=== PATIENT | female | born 1990 | race Hispanic/Latino ===

== ENCOUNTER 2016-03-21 05:31 | Inpatient (IN) | payer BC, MEDICAID ==
--- NOTE | 2016-03-20 20:19 | History and Physical Report ---
History of Present Illness Date of examination: 03/21/16 Date of admission: 03/21/2016 Chief complaint: I'm here for my History of present illness: Patient is a 25 year old who presents for elective repeat with bilateral tubal ligation. She has had an uncomplicated course and has been receiving care since 1st trimester Past History Past Medical History: no pertinent history Past Surgical History: cholecystectomy, section Social history: - Obstetrical History Expected Date of Delivery: 03/26/16 Actual Gestation: 39 Week(s) 4 Day(s) Medications and Allergies Allergies Allergy/AdvReac Type Severity Reaction Status Date / Time Penicillins Allergy Unknown Verified 03/21/16 05:33 Home Medications Medication Instructions Recorded Confirmed Last Taken Type No Known Home Medications [No 03/21/16 03/21/16 Unknown History Reported Home Medications] Review of Systems All systems: negative Gastrointestinal: abdominal pain - Physical Exam Breasts: Positive: deferred Cardiovascular: Regular rate, Normal S1, Normal S2 Lungs: Positive: Clear to auscultation, Normal air movement Abdomen: Positive: normal appearance, soft, normal bowel sounds. Negative: distention, tenderness Vulva: both: normal Vagina: Positive: normal moisture. Negative: discharge Cervix: Negative: lesion, discharge Uterus: Positive: normal size, normal contour Adnexa: both: normal Anus/Rectum: Positive: normal perianal skin, heme negative. Negative: rectal mass, hemorrhoids Extremities: Deep Tendon Reflex Grade: Normal +2 - Obstetrical FHR: auscultation normal, category 1 Cervical Dilatation: 0 Results Result Diagrams: 03/21/16 20:10 All other labs normal. Assessment and Plan IUP at 39 weeks here for elective repeat . Admit for surgery. consents signed and on the chart.
[~2016-03-21 05:31] MED LIST: ANCEF/STERILE WATER 2 GM/20 ML 20 ML IV NR; BICITRA PO ONE; PEPCID IV ONE; PITOCin/NS 20 UNIT/1000ML DRIP 1,000 ML IV NR; REGLAN IV ONE
[2016-03-21] MEDS ORDERED: LACTATED RINGERS 2,000 ML ONE (05:38)
[2016-03-21] MEDS: LACTATED RINGERS 1,000 ML IV NR ×2 (05:58→07:16)
[2016-03-21 06:18] LABS: Basophils % (Auto) 0.6 % (0.0-1.8); Eosinophils % (Auto) 1.6 % (0.0-4.3); Hematocrit 27.8 % (30.3-42.9); Hemoglobin 9.8 gm/dl (10.1-14.3); Mean Corpuscular HGB Conc 35 % (30-34); Mean Corpuscular Hemoglobin 29 pg (28-32); Mean Corpuscular Volume 83 fl (79-97); Red Blood Count 3.34 M/mm3 (3.65-5.03); Red Cell Distribution Width 14.9 % (13.2-15.2); White Blood Count 10.5 K/mm3 (4.5-11.0)
[2016-03-21 06:26] LABS: Platelet Count 250 K/mm3 (140-440)
[2016-03-21] MEDS ORDERED: GARAMYCIN 120 MG in NACL 0.9% 100 ML IV SCH (06:45)
[2016-03-21] MEDS ORDERED: GARAMYCIN IV ONE (07:00)
[2016-03-21] MEDS ORDERED: CLEOCIN 600 MG/50 mL 50 ML IV NR (07:00)
[2016-03-21] MEDS ORDERED: NS IV ONE (07:00)
[2016-03-21] MEDS ORDERED: BICITRA ONE (07:00)
[2016-03-21] MEDS ORDERED: REGLAN ONE (07:01)
[2016-03-21] MEDS ORDERED: PEPCID IV ONE (07:01)
[2016-03-21] MEDS ORDERED: GARAMYCIN 120 MG in NACL 0.9% 100 ML IV ONE (07:10)
--- NOTE | 2016-03-21 07:20 | Anesthesia Consultation ---
Anesthesia Consult and Med Hx Date of service: 03/21/16 - Airway Anesthetic Teeth Evaluation: Good (careos between #8 and #9) ROM Head & Neck: Adequate Mental/Hyoid Distance: Adequate Mallampati Class: Class II Intubation Access Assessment: Probably Good - Pre-Operative Health Status ASA Pre-Surgery Classification: ASA2 Proposed Anesthetic Plan: Spinal - Pulmonary Hx Asthma: No COPD: No Hx Pneumonia: No - Cardiovascular System Hx Hypertension: No - Central Nervous System Hx Seizures: No Hx Psychiatric Problems: No - Endocrine Hx Renal Disease: No Hx End Stage Renal Disease: No Hx Hypothyroidism: No Hx Hyperthyroidism: No - Hematic Hx Anemia: No Hx Sickle Cell Disease: No
--- NOTE | 2016-03-21 07:21 | Anesthesia Day of Surgery ---
Anesthesia Day of Surgery - Day of Surgery Patient Examined: Yes Patient H&P Reviewed: Yes Patient is NPO: Yes
[2016-03-21] MEDS ORDERED: MORPHINE ONE (07:39)
[2016-03-21] MEDS ORDERED: ePHEDrine SULFATE ONE (07:58)
[2016-03-21] MEDS ORDERED: ZOFRAN IV PRN ×2 (08:00→13:22)
[2016-03-21] MEDS ORDERED: NARCAN 0.4 MG/1 ML IV PRN ×2 (08:00→10:29)
[2016-03-21] MEDS ORDERED: SODIUM CHLORIDE FLUSH SYRINGE 10 ML IV NR ×2 (08:00→10:29)
[2016-03-21] MEDS ORDERED: BENADRYL IV PRN (08:00)
[2016-03-21] MEDS ORDERED: TORADOL IV PRN (08:00)
[2016-03-21] MEDS ORDERED: DILAUDID IV PRN (08:00)
[2016-03-21] MEDS ORDERED: NACL 0.9% IR ONE (08:34)
[2016-03-21] MEDS ORDERED: WATER FOR IRRIG STERILE IR ONE (08:34)
[2016-03-21] MEDS ORDERED: MORPHINE IV PRN (10:29)
[2016-03-21] MEDS ORDERED: TUCKS PAD TP PRN (10:29)
[2016-03-21] MEDS ORDERED: MYLICON PO PRN (10:29)
[2016-03-21] MEDS ORDERED: PITOCin/NS 20 UNIT/1000ML DRIP 1,000 ML IV SCH (10:29)
[2016-03-21] MEDS ORDERED: LANSINOH TP PRN (10:29)
[2016-03-21] MEDS ORDERED: D5LR 1,000 ML IV ONE (13:06)
[2016-03-21] MEDS ORDERED: D5LR 1,000 ML IV SCH (14:00)
--- NOTE | 2016-03-21 14:19 | Operative Report ---
PREOPERATIVE DIAGNOSES: 1. Intrauterine at 39 and 1/7 weeks. 2. Previous section. 3. Undesired fertility. POSTOPERATIVE DIAGNOSES: 1. Intrauterine at 39 and 1/7 weeks. 2. Previous section. 3. Undesired fertility. PROCEDURE: Repeat low transverse section. SURGEON: Steffi Mata MD MANAGER BUSINESS MANAGEMENT: Naomi Wren. ESTIMATED BLOOD LOSS: 700 mL. IV FLUIDS: 1000 mL. URINE OUTPUT: 200 mL clear at the end of the procedure. COMPLICATIONS: None. SPECIMENS: Right and left fallopian tubes. FINDINGS: Viable female delivered at 08:14 a.m. Weight 6 pounds 13 ounces, 3094 grams. Apgars 8 and 9. DESCRIPTION OF PROCEDURE: The patient was taken to the OR with IV running in place. She was appropriately identified as herself. She was given adequate anesthesia without difficulty. She was then placed in the dorsal supine position with a leftward tilt and prepped and draped in a normal sterile fashion. Attention was turned to the patient's abdomen where an Allis test confirmed adequate anesthesia. Following this, a Pfannenstiel incision was made in the area of her previous incision and carried to the underlying fascia with a scalpel. The fascia was incised in the midline and extended bilaterally using the curved Elizabeth scissors. The fascia was then dissected from underlying rectus muscles in a series of sharp and blunt dissection. The muscle was entered into bluntly and the rectus muscles were sharply superiorly and inferiorly using the Elizabeth scissors. The peritoneal cavity was entered into sharply using Metzenbaum scissors and the peritoneal incision was also extended superiorly and inferiorly. The bladder blade was then placed into the incision to protect the bladder. The bladder flap was created and the bladder blade was replaced. Following this, the hysterotomy incision was made using the scalpel. Once at the level of the amniotic membrane, the incision was entered and was extended bilaterally using the surgeon's finger. The sac was ruptured. The vertex of the was delivered atraumatically in the ROT position. Mouth and nose were suctioned on the field and the rest of the baby was delivered without difficulty. The cord was clamped and cut, and the was handed to the awaiting NICU personnel. Cord blood was obtained, following which the placenta was delivered manually and handed off for pathology. The uterus was then exteriorized and cleared of all clots and debris. It was then closed in a running locked fashion with 1 chromic for excellent hemostasis. Attention was then turned to the patient's fallopian tubes. They were grasped with the Juliet clamp and they were both ligated in the [place] style tubal ligation. Following this, the abdomen and pelvis was copiously irrigated with warm normal saline. The uterus was replaced into the abdominal cavity. Again, there was excellent hemostasis. The muscles were then reapproximated in the midline using individual sutures of 0 Vicryl. The fascia was then closed in a running fashion using 0 Vicryl. Subcutaneous tissue was then copiously irrigated and the skin was closed in the subcuticular fashion using 4-0 Monocryl. The sponge, lap, needle, and instrument counts were correct x 2. The patient tolerated the procedure well and was taken to recovery in stable condition. JOB# [id number] DAVID/JORGE LUIS CHRISTIAN
[2016-03-21 20:19] LABS: Hematocrit 25.3 % (30.3-42.9)
[2016-03-21] MEDS ORDERED: NACL 0.9% 1000 ML 1,000 ML IV ONE (21:00)
[2016-03-22] MEDS: MOTRIN PO PRN (11:39)
[2016-03-22] MEDS: PERCOCET 5/325 PO PRN ×2 (11:39→20:06)
--- NOTE | 2016-03-22 14:09 | Progress Note ---
Subjective Date of service: 03/22/16 Interval history: 1st POD after Patient is in the bed, comfortable. Ambulated normally. Pain is well controlled with pain meds. No residual neurological deficit. No anesthesia complications Objective - Constitutional Vitals: Vital Signs - 12hr 03/22/16 03/22/16 04:10 09:30 Temperature 98.1 F 98.3 F Pulse Rate [ 98 H 98 H Left Radial] Respiratory 18 20 Rate Blood Pressure 103/60 100/48 [Left Arm] - Labs CBC & Chem 7: 03/21/16 20:10 Labs: Abnormal lab results 03/21/16 Range/Units 20:10 Hgb 8.0 L (10.1-14.3) gm/dl Hct 25.3 L (30.3-42.9) %
[2016-03-23] MEDS: PERCOCET 5/325 PO PRN ×2 (05:35→11:41)
--- NOTE | 2016-03-23 10:08 | Progress Note ---
Assessment and Plan POD 2 s/p rltcs with tubal ligation. Patient doing well * Patient presented with anemia and will be sent home with ferrous sulfate * Plan for discharge on today Subjective - Subjective Date of service: 03/23/16 Interval history: Patient is a 25 year old who presents for elective repeat with bilateral tubal ligation. She has had an uncomplicated course and has been receiving care since 1st trimester Patient reports: appetite normal, voiding normally, pain well controlled, ambulating normally (patient was experiencing some mild dizziness on pod 0, but it has since resolved) : doing well Objective - Vital Signs Latest vital signs: Vital Signs Temp Pulse Pulse Resp BP 03/23/16 08:00 98.8 F 95 H 18 110/56 03/23/16 00:00 98.6 F 98 H 18 112/55 03/22/16 16:05 97.8 F 90 18 106/50 Intake and Output 03/22/16 03/23/16 03/23/16 22:59 06:59 14:59 Intake Total 1320 Balance 1320 Intake: Oral 240 Intake, Free Water 1080 Other: Total, Intake Amount 240 # Voids Indwelling Catheter 1 Void 1 - Exam Breasts: Present: deferred Cardiovascular: Present: Regular rate, Normal S1, Normal S2 Lungs: Present: Clear to auscultation, Normal air movement Abdomen: Present: normal appearance, soft, normal bowel sounds Vulva: both: normal Uterus: Present: normal, firm, fundal height below umbilicus Extremities: Present: normal Deep Tendon Reflex Grade: Normal +2 Incision: Present: normal, dry, intact
--- NOTE | 2016-03-23 10:12 | Discharge Summary ---
Providers - Providers Date of Admission: 03/21/16 05:31 Date of discharge: 03/23/16 Attending physician: MYLES MARIE Primary care physician: MYLES MARIE Hospitalization Reason for admission: IUP at term Delivery: Procedure: bilateral tubal ligation, repeat low transverse Incision: normal, dry, intact Discharge diagnosis: IUP at term delivered [place] baby: female Hospital course: unremarkable Condition at discharge: Good Disposition: DISCHARGED TO HOME OR SELFCARE Plan - Discharge Medications Prescriptions: Docusate Sodium [Colace] 100 mg PO BID PRN #60 capsule PRN Reason: Constipation Ferrous Sulfate [Feosol 325 MG tab] 325 mg PO BID #60 tablet Ibuprofen [Motrin 800 MG tab] 800 mg PO Q6H PRN #40 tablet PRN Reason: Pain, Mild (1-3) oxyCODONE /ACETAMINOPHEN [Percocet 5/325 mg] 2 tab PO Q6H PRN #40 tablet PRN Reason: Pain, Moderate (4-6) - Provider Discharge Summary Activity: routine, no sex for 6 weeks, no heavy lifting 4 weeks, no strenuous exercise Diet: routine Instructions: routine Additional instructions: [] Smoking cessation referral if applicable(refer to patient education folder for contact #) [] Refer to [facility]'s [facility] Booklet Call your doctor immediately for: * Fever > 100.5 * Heavy vaginal bleeding ( >1 pad per hour) * Severe persistent headache * Shortness of breath * Reddened, hot, painful area to leg or breast * Drainage or odor from incision. * Keep incision clean and dry at all times and follow doctor's instructions regarding bathing/showering
[2016-03-23] MEDS: MOTRIN PO PRN (11:40)
[2016-03-23 13:01] VITALS: BP 105/55
== END 2016-03-23 13:35 | disposition home or self-care (01) | DRG 766 ==
LOC: APU 05:31 → OB 10:33
PROVIDERS: ADMIT Obstetrics & Gynecology; ATTEND Obstetrics & Gynecology
PROC: 10D00Z1 Extraction of Products of Conception, Low, Open Approach (ICD-10-PCS; principal; 2016-03-21)
PROC: 0UL70ZZ Occlusion of Bilateral Fallopian Tubes, Open Approach (ICD-10-PCS; principal; 2016-03-21)
DX: O34.211 Maternal care for low transverse scar from previous cesarean delivery (principal); O99.02 Anemia complicating childbirth; Z37.0 Single live birth; Z3A.39 39 weeks gestation of pregnancy; Z90.49 Acquired absence of other specified parts of digestive tract; Z30.2 Encounter for sterilization
CPT/HCPCS: 36415; 85014; 85018; 85025; 86850; 86900; 86901; 88302; J1580; J2270; J2405; J2590; J2765; J7030; J7120; J7121